=== PATIENT | female | born 1945 | race Caucasian/White ===

== ENCOUNTER 2022-01-23 12:38 | Emergency (ER) | payer MEDICARE ==
[~2022-01-23] VITALS: Ht 157.5 cm; Wt 53.5 kg
[2022-01-23] MEDS ORDERED: LOSARTAN POTASS25 M2 PO (15:44)
== END 2022-01-23 15:45 | disposition home or self-care (01) ==
LOC: ER 12:38
DX: S86.911A Strain of unspecified muscle(s) and tendon(s) at lower leg level, right leg, initial encounter (principal); X58.XXXA Exposure to other specified factors, initial encounter; Z88.5 Allergy status to narcotic agent
CPT/HCPCS: 93971

== ENCOUNTER 2022-02-14 16:27 | Emergency (ER) | payer MEDICARE ==
[~2022-02-14] VITALS: Ht 157.5 cm; Wt 63.5 kg
[~2022-02-14 16:27] MED LIST: LOSARTAN POTASS25 M2 PO
[2022-02-14] MEDS ORDERED: Neurontin 100100 MG PO (19:54)
== END 2022-02-14 20:14 | disposition home or self-care (01) ==
LOC: ER 16:27
DX: M54.10 Radiculopathy, site unspecified (principal); Z79.899 Other long term (current) drug therapy; Z88.5 Allergy status to narcotic agent
CPT/HCPCS: 99283-25

== ENCOUNTER 2025-02-19 05:58 | Day surgery (SDC) | payer OTHER ==
[~2025-02-19] VITALS: Ht 154.9 cm; Wt 50.9 kg
[2025-02-19] VITALS (8 sets, daily range): BP systolic 118–159; BP diastolic 60–72
[~2025-02-19 05:58] MED LIST changes: +IBUP200 PO; +LOSA50 PO; -LOSARTAN POTASS25 M2 PO; +Neurontin 100100 MG PO
[2025-02-19] MEDS ORDERED: Tranexamic Acid 100 ML IV SCH (06:15)
[2025-02-19] MEDS ORDERED: CeFAZolin Sodium 2,000 MG in NS 100 ML IV SCH (06:15)
[2025-02-19] MEDS ORDERED: Dexmedetomidine HCL 200 MCG / 2 ML ONE (07:18)
[2025-02-19] MEDS ORDERED: EPINEPhrine HCl 1 MG / ML 30ML Vial ONE (07:20)
[2025-02-19] MEDS ORDERED: Bupivacaine 0.25% Epi 1:200000 30 ML Vial ONE (07:20)
--- NOTE | 2025-02-19 07:21 | NUR ---
SUPRACLAVICULAR BLOCK TIME OUT: PERFORMED WITH HALROB AT 719 START: 731 END: 734 VSS MONITORED T/O PROCEDURE. PT TOW
[2025-02-19] MEDS ORDERED: FentaNYL Citrate 50 MCG/ML 2 ML Injection ONE ×2 (07:40→10:07)
--- NOTE | 2025-02-19 07:40 | NUR ---
Ambulatory in Day Surgery. History, Chart, Medications and Allergies reviewed before start of procedure. Patient confirms NPO status and agrees with scheduled surgery. Patient reports completing Chlorhexadine shower X2 prior to admission to hospital. Surgical site prepped with 2% Chlorhexidine cloth wipe. Patient States Post-Procedure ride home has been arranged.
[2025-02-19] MEDS ORDERED: Ondansetron HCl 2 MG / ML 2ML Vial ONE (08:51)
[2025-02-19] MEDS ORDERED: Rocuronium Bromide 10 MG/ML 5ML Injection IV ONE (08:51)
[2025-02-19] MEDS ORDERED: Dexamethasone Sod Phos 10 MG/ML 1ML VIAL ONE (08:51)
[2025-02-19] MEDS ORDERED: Phenylephrine HCl 100 MCG/ML-NS 10MLSYR (1MG/10ML) ONE (08:55)
[2025-02-19] MEDS ORDERED: Ondansetron HCl 2 MG / ML 2ML Vial IV PRN (09:05)
[2025-02-19] MEDS ORDERED: HYDROmorphone HCl/Pf 1MG SYR IV PRN (09:05)
[2025-02-19] MEDS ORDERED: Metoclopramide HCl 5MG / ML 2ML Vial IV PRN (09:05)
[2025-02-19] MEDS ORDERED: FentaNYL Citrate 50 MCG/ML 2 ML Injection IV PRN ×3 (09:05)
[2025-02-19] MEDS ORDERED: Sugammadex Sodium 200 MG/2ML SDV (100 MG/ML) ONE (10:07)
--- NOTE | 2025-02-19 11:47 | NUR ---
TO STEP POST SHOULDER ARTHROSCOPY. BLOCK IN PLACE/EFFECTIVE. DENIES PAIN, NAUSEA, SOB. FINGERS WARM, ABLE TO MOVE ON COMMAND. COLE PO WELL. VERBALIZED UNDERSTANDING OF DC INSTRUCTIONS. AMBULATED TO BR WITH STANDBY ASSIST. DC'D IV INTACT. DISCHARGED VIA WC TO PRIVATE CAR WITH YARN DYER AND BELONGINGS/POLAR PACK.
== END 2025-02-19 11:40 | disposition home or self-care (01) ==
LOC: ORSCMMR 05:58 → ORD 07:30 → ORSCMMR 07:30
DX: M75.121 Complete rotator cuff tear or rupture of right shoulder, not specified as traumatic (principal); M19.011 Primary osteoarthritis, right shoulder; I10 Essential (primary) hypertension; Z79.899 Other long term (current) drug therapy
CPT/HCPCS: C1713; J0165; J0690; J1100; J2371; J2405; J2704; J3010; J7120